=== PATIENT | male | born 1995 | race Caucasian/White ===

== ENCOUNTER 2017-06-26 03:48 | Emergency (ER) | payer OTHER ==
[~2017-06-26] VITALS: Ht 170.2 cm; Wt 99.0 kg
[~2017-06-26 03:48] MED LIST: IBUP800 PO; LISD60 PO
[2017-06-26 03:52] VITALS: BP 144/88; PULSE 94; RESP 18; TEMP 97.5; O2SAT 100
[2017-06-26] MEDS ORDERED: LISD20 PO (04:10)
[2017-06-26] MEDS ORDERED: ceFAZolin 2 GM PREMIX 50 ML IV ONE (04:15)
[2017-06-26] MEDS ORDERED: SODIUM CHLORIDE 0.9% FLUSH 10 ML FLUSH IVF PRN (04:15)
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
[2017-06-26] MEDS ORDERED: LIDOCAINE HCL 1% 50 ML VIAL INFIL ONE (05:00)
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
[2017-06-26] MEDS ORDERED: PENI500T PO (05:16)
--- NOTE | 2017-06-26 05:27 | PD ---
Physical Exam Time Seen by Provider: 05:00 Data Data Last Documented VS Vital Signs Date Time Temp Pulse Resp B/P (MAP) Pulse Ox O2 Delivery O2 Flow Rate FiO2 06/26/17 03:52 97.5 94 18 144/88 (106) 100 Room Air Orders Orders Ct Brain W/O Iv Contrast(Rout) (06/26/17 04:08) Ct Cerv Spine W/O Contrast (06/26/17 04:08) Ct Facial Bones W/O Iv Cont (06/26/17 04:08) Iv Access Insert/Monitor (06/26/17 04:08) Ecg Monitoring (06/26/17 04:08) Oximetry (06/26/17 04:08) Oxygen Administration (06/26/17 04:08) Cefazolin 2 Gm Premix (Ancef 2 Gm Premix (06/26/17 04:15) Sodium Chloride 0.9% Flush (Ns Flush) (06/26/17 04:15) Lidocaine 1% Inj (50 Ml) (Xylocaine 1% I (06/26/17 05:00) Ed Discharge Order (06/26/17 05:16) [facility] Medical Record Reviewed: Yes Supervised Visit with GWEN: No Narrative Course This patient presents with a facial laceration, I was asked to repair. He verbally consented. Procedures Procedure Narrative LACERATION LOCATION: Right upper lip LENGTH: 2 cm NUMBER OF STITCHES/BREANNA: 10 REPAIR: The area of the laceration was prepped with Betadine and sterilely draped. The laceration was infiltrated with 1% lidocaine. The wound was copiously irrigated and explored without evidence of foreign body, tendon injury or neurovascular injury. The wound was closed using- 4 simple interrupted sutures of 6-0 prolene were used to close the cutaneous portion of the wound. One simple interrupted suture of 5-0vicryl to close the muscle layer and 5 simple interrupted sutures of 5-0 fast absorbing chromic to close the intraoral portion of the wound. Care was taken to approximate the vermilion border first.. This was a 3 layer repair. A sterile dressing was applied. The patient was advised to keep the dressing clean and dry. Patient tolerated the procedure well. Diagnosis Primary Impression: Concussion, unspecified Additional Impressions: Lip laceration Qualified Codes: S01.511A - Laceration without foreign body of lip, initial encounter Facial contusion Qualified Codes: S00.83XA - Contusion of other part of head, initial encounter Minor closed head injury Laceration of buccal mucosa Qualified Codes: S01.512A - Laceration without foreign body of oral cavity, initial encounter Referrals: Primary Care Physician 2 days Patient Instructions: General Instructions Additional Instruction: Follow head injury precautions for 24 hours Keep wound site clean and dry Wound check at 2 days and suture removal at 5-7 days No alcohol consumption Increase fluid hydration Take acetaminophen or as tolerated ibuprofen per package instructions for pain or for fever 100.4F or greater Take antibiotic as prescribed Return to the emergency department for any concerns or change in condition Scripts Penicillin V Potassium (Penicillin V Potassium) 500 Mg Tab 500 MG PO Q6H for Infection for 7 Days, #28 TAB 0 Refills Prov: Shraddha Tejeda MD 06/26/17 Disposition: 01 DISCHARGE HOME Condition: Stable Paco Goodwin Jun 26, 2017 05:27
== END 2017-06-26 05:41 | disposition home or self-care (01) ==
LOC: NEPC 03:48
DX: S01.511A Laceration without foreign body of lip, initial encounter (principal); S00.83XA Contusion of other part of head, initial encounter; S01.512A Laceration without foreign body of oral cavity, initial encounter; S06.0X0A Concussion without loss of consciousness, initial encounter; F90.9 Attention-deficit hyperactivity disorder, unspecified type; R73.03 Prediabetes; G47.00 Insomnia, unspecified; Z79.899 Other long term (current) drug therapy; Y04.8XXA Assault by other bodily force, initial encounter
CPT/HCPCS: 40650; 70450; 70486; 72125; 96365; 99285; J0690